=== PATIENT | female | born 1980 | race Caucasian/White ===

== ENCOUNTER → 2024-02-28 08:01 | Outpatient (REF) | payer BC, SELFPAY | LOC: WDC 08:01 | PROVIDERS: ATTENDING PHYSICIAN Obstetrics & Gynecology; FAMILY PHYSICIAN Family Medicine | DX: Z12.31 Encounter for screening mammogram for malignant neoplasm of breast (principal) | CPT/HCPCS: 77063; 77067 ==

== ENCOUNTER → 2025-02-12 07:56 | Outpatient (REF) | payer BC, SELFPAY | LOC: HWRAD 07:56 | PROVIDERS: ATTENDING PHYSICIAN Obstetrics & Gynecology; FAMILY PHYSICIAN Family Medicine | DX: N92.4 Excessive bleeding in the premenopausal period (principal) | CPT/HCPCS: 76830; 76856 ==

== ENCOUNTER → 2025-02-19 08:44 | Outpatient (REF) | payer BC, SELFPAY ==
[2025-02-19 10:10] LABS: Hematocrit 37.5 % (37.0-47.0); Hemoglobin 13.6 g/dL (12.0-16.0); Mean Corp Hgb Conc. 36.3 g/dL (33.0-37.0); Mean Corpuscular Volume 95.7 fL (81.0-99.0); Nucleated Red Blood Cells % 0 %; Platelet Count 227 10^3/uL (130-400); Red Cell Dist. Width 13.1 % (11.5-14.5)
[2025-02-19 10:23] LABS: INR 1.02; PT 13.7 Sec (11.4-14.6)
[2025-02-19 10:24] LABS: APTT 27.5 Sec (23.4-35.0)
[2025-02-19 10:39] LABS: Blood Urea Nitrogen 14 mg/dl (7-17); Glucose 97 mg/dl (70-99)
[2025-02-19 10:40] LABS: ALT (SGPT) 16 U/L (0-35); AST (SGOT) 20 U/L (14-36); Albumin 4.4 g/dl (3.5-5.0); Alkaline Phosphatase 51 U/L (38-126); Calcium 8.9 mg/dl (8.4-10.2); Carbon Dioxide 28 mmol/L (22-30); Chloride 105 mmol/L (98-107); HDL Cholesterol 62 mg/dl; LDL Cholesterol, Calculated 77 mg/dl; Potassium 4.5 mmol/L (3.5-5.1); Sodium 140 mmol/L (135-145); Total Protein 7.7 g/dl (6.3-8.2); Very Low Density Lipoprotein 12 mg/dl (0-30); eGFR > 60.00
[2025-02-19 10:55] LABS: Urine Character Slightly Cloudy (Clear)
[2025-02-19 11:53] LABS: Urine Red Blood Cell >100 /HPF (0-2)
[2025-02-19 19:20] LABS: FSH 8.4 mIU/ml
[2025-02-19 19:34] LABS: TSH 2.78 uIU/ml (0.47-4.68)
== END ==
LOC: REG 08:44
PROVIDERS: ATTENDING PHYSICIAN Obstetrics & Gynecology; FAMILY PHYSICIAN Family Medicine
DX: Z00.00 Encounter for general adult medical examination without abnormal findings (principal); N92.4 Excessive bleeding in the premenopausal period
CPT/HCPCS: 36415; 80053; 80061; 81003; 81015; 82670; 83001; 83002; 84443; 85025; 85610; 85730

== ENCOUNTER → 2025-02-28 07:18 | Outpatient (REF) | payer BC, SELFPAY | LOC: WDC 07:18 | PROVIDERS: ATTENDING PHYSICIAN Obstetrics & Gynecology; FAMILY PHYSICIAN Family Medicine | DX: Z12.31 Encounter for screening mammogram for malignant neoplasm of breast (principal) | CPT/HCPCS: 77063; 77067 ==

== ENCOUNTER 2025-04-05 06:35 | Day surgery (SDC) | payer BC, SELFPAY ==
[2025-04-05] VITALS (8 sets, daily range): BP systolic 94–125; BP diastolic 44–76; BMI 47.7
[2025-04-05] MEDS: NORMOSOL-R/PLASMALYTE-A 1000 IV (10:09)
== END 2025-04-05 12:23 | disposition home or self-care (01) ==
LOC: SDS 06:35
PROVIDERS: ATTENDING PHYSICIAN Obstetrics & Gynecology
DX: N84.0 Polyp of corpus uteri (principal); N93.8 Other specified abnormal uterine and vaginal bleeding
CPT/HCPCS: 58558; 88305